=== PATIENT | female | born 1990 | race Caucasian/White ===

== ENCOUNTER → 2022-01-04 | Outpatient (CLI) | payer OTHER ==
--- NOTE | 2022-01-04 10:28 | KCIC ---
STUDY: MRI of the lumbar spine without contrast INDICATION: Chronic low back pain. COMPARISON: None. TECHNIQUE: Multiplanar MR imaging of the lumbar spine performed without the use of intravenous contra st. FINDINGS: Normal signal and configuration of the conus medullaris terminating at L1-L2. Unremarkable cauda equi na. Mild broad levocurvature with the apex at L1-L2. No listhesis. Moderate disc space height loss eccent tigre to the left at L5-S1. Active degenerative endplate edema eccentric to the left at L5-S1. Disc spa ce height and hydration is well maintained elsewhere. Unremarkable paraspinous soft tissues. T11-T12 and T12-L1: Only evaluated on the sagittal sequences. Patent central canal and neural foramin a. L1-L2 through L4-L5. No significant degenerative changes. Only mild early facet arthrosis on the left at L4-L5. Wide patency of the central canal, lateral recesses and neural foramina. L5-S1: Left eccentric disc bulge with a superimposed central/left paracentral protrusion measuring ju st under 4 mm AP (image 20 series 5). No significant facet arthrosis. Patent central canal. Minimal a symmetric narrowing of the left lateral recess without significant stenosis. Mild neural foraminal st enosis on the left. The right neural foramen is patent. IMPRESSION: 1. Moderate disc space height loss eccentric to the left at L5-S1 with associated active endplate ed issa. Background mild lumbar levocurvature with the apex at L1-L2. No significant discogenic arthrosis elsewhere. 2. Left eccentric disc bulge at L5-S1 with a central/left paracentral protruding component measuring just under 4 mm AP. No associated central canal stenosis and only minimal narrowing of the left late ral recess. Mild neural foraminal stenosis on the left at L5-S1. Patent central canal, lateral recess es and neural foramina throughout the rest of the lumbar spine. Electronically signed by: SALINA FELIX MD (01/04/2022 10:25 AM) [id number]
== END ==
LOC: KCIC MRI 09:02
PROVIDERS: ATTEND Family Medicine
DX: M47.816 Spondylosis without myelopathy or radiculopathy, lumbar region (principal); M51.27 Other intervertebral disc displacement, lumbosacral region; M43.8X6 Other specified deforming dorsopathies, lumbar region; R60.0 Localized edema; M48.07 Spinal stenosis, lumbosacral region
CPT/HCPCS: 72148